=== PATIENT | female | born 1985 | race Caucasian/White ===

== ENCOUNTER 2023-05-06 00:05 | Day surgery (SDC) | payer OTHER ==
[~2023-05-06] VITALS: Ht 170.2 cm; Wt 63.2 kg
[2023-05-06] VITALS (10 sets, daily range): BP systolic 90–115; BP diastolic 49–71; PULSE 62–88; TEMP 97.7–98.6
[~2023-05-06 00:05] MED LIST: HYDROmorphone 0.5 MG/0.5 ML SYRINGE IV PRN; NS 1,000 ML IV SCH; Ondansetron 4 MG/2 ML VIAL IV PRN
--- NOTE | 2023-05-06 00:42 | NUR ---
THE PATIENT ARRIVED VIA EMS ALERT AND ORIENTED. THE PATIENT WAS ORIENTED TO THE ROOM AND BED CONTROLS. THE PATIENTS VITAL SIGNS WERE STABLE. CALL LIGHT WITHIN REACH WELL PERSONAL BELONGINGS.
[2023-05-06] MEDS ORDERED: IMITREX50 MG PO (00:48)
[2023-05-06] MEDS ORDERED: SEROQUEL 2525 MG/TAB PO (00:50)
[2023-05-06] MEDS ORDERED: ABILIFY 10MG TA10 MG PO (00:53)
[2023-05-06] MEDS ORDERED: RIBOFLAVIN100 MG PO (00:54)
[2023-05-06] MEDS ORDERED: TOPAMAX 100MG100 M1 PO (00:56)
--- NOTE | 2023-05-06 07:30 | NUR ---
OR ON UNIT AND WANTING TO TAKE PATIENT DOWN TO OR. PATIENT HAS BEEN NPO SINCE MIDNIGHT. IV FLUIDS INFUSING VIA PUMP, NO PRE-OP ORDERS. IV FLUIDS PLACED TO GRAVITY FOR OR. PATIENT STILL IN STREET CLOTHES. ASSISTED PATIENT TO BATHROOM TO VOID AND CHANGED INTO GOWN. NO ORDERS FOR CONSENT, OR STAFF NOTIFIED. NEGATIVE HCG ON CHART AND CIRCLED. TICKET TO RIDE ON CHART. PATIENT TEXT HER FAMILY/FRIENDS AND IS NOW OFF FLOOR.
[2023-05-06] MEDS ORDERED: Rocuronium 50 MG/5 ML Multi-Dose VIAL ONE (07:41)
[2023-05-06] MEDS ORDERED: Succinylcholine PF 100 MG/5 ML SYRINGE/POLY AMP IV ONE (07:41)
[2023-05-06] MEDS ORDERED: Lidocaine PF 2% (20 MG/ML) 5 ML VIAL ONE (07:42)
[2023-05-06] MEDS ORDERED: fentaNYL 50 MCG/ML 2 ML VIAL ONE (07:42)
[2023-05-06] MEDS ORDERED: LR 1,000 ML IV SCH (07:45)
[2023-05-06] MEDS ORDERED: Ibuprofen 600 MG TAB PO PRN (08:00)
[2023-05-06] MEDS ORDERED: IBU600 MG PO (08:01)
[2023-05-06] MEDS ORDERED: AMOXICILLIN 8751 TAB PO (08:01)
[2023-05-06] MEDS ORDERED: NORCO 325 MG-51 TAB PO (08:01)
[2023-05-06] MEDS ORDERED: HYDROmorphone 2 MG/1 ML VIAL IV PRN (08:15)
[2023-05-06] MEDS ORDERED: fentaNYL 50 MCG/ML 2 ML VIAL IV PRN (08:15)
[2023-05-06] MEDS ORDERED: hydrALAZINE 20 MG/ML 1 ML VIAL IV PRN (08:15)
[2023-05-06] MEDS ORDERED: Meperidine 50 MG/ML 1 ML VIAL IV PRN (08:15)
[2023-05-06] MEDS ORDERED: Ondansetron 4 MG/2 ML VIAL IV PRN (08:15)
[2023-05-06] MEDS ORDERED: Ondansetron 4 MG/2 ML VIAL ONE (08:29)
[2023-05-06] MEDS ORDERED: dexAMETHasone 10 MG/ML VIAL ONE (08:29)
[2023-05-06] MEDS ORDERED: Topical Skin Adhesive 1 EACH (1 ML) TOP ONE (08:30)
[2023-05-06] MEDS ORDERED: Ketorolac 30 MG/ML VIAL ONE (08:35)
--- NOTE | 2023-05-06 09:30 | NUR ---
PATIENT BACK IN ROOM POSTOP. VERY DROWSY BUT ORIENTED. VSS. NO COMPLAINTS.
--- NOTE | 2023-05-06 11:10 | NUR ---
PATIENT NOW MORE AWAKE AND REPORTS FEELING HUNGRY. PATIENT SHOWN HOW TO ORDER. FRIEND AT BEDSIDE. VSS. PATIENT DOING WELL AND WILL DISCHARGE WHEN CRITERIA MEET.
--- NOTE | 2023-05-06 11:20 | NUR ---
mental health social worker met with patient and her friend, gail at bedside to discuss discharge planning. Pt lives in [place] with her , Thiago [phone]. Pt reports her is deployed. She sees any provider at [facility] and obtains medications from [facility] with no difficulties. She is independent with [facility] and uses no DME. She does not have a DPOA-HC, but completed one listing her , Thiago. Copy in chart and copies/original provided. Pt intends to return home at discharge today. Discharge Plan: Home
--- NOTE | 2023-05-06 13:30 | NUR ---
PATIENT DISCHARGING HOME. GAVE DISCHARGE INSTRUCTIONS, E-SCRIPTS SENT, AND DISCUSSED F/U APT. ANSWERED QUESTIONS/CONCERNS. DC'D IV SITE AND COVERED WITH [employer]. PATIENT IS DRESSED, PACKED AND ESCORTED OUT TO PERSONAL VEHICLE WITH FRIEND.
[2023-05-06] MEDS ORDERED: Amoxicillin/Clavulanate K+ 875/125 MG TAB PO SCH (17:00)
== END 2023-05-06 13:30 | disposition home or self-care (01) ==
LOC: SURG 00:05 → SDCO 00:05 → SURG 13:30 → SDCO 13:30 → SURG 14:22
DX: K35.80 Unspecified acute appendicitis (principal)
CPT/HCPCS: OP; G0378; G0379; J0330; J1100; J1170; J1885; J2405; J2543; J2704; J3010; J7030

== ENCOUNTER → 2023-06-22 | Outpatient (CLI) | payer OTHER ==
[~2023-06-22] VITALS: Ht 170.2 cm; Wt 63.0 kg
[~2023-06-22] MED LIST changes: +ABILIFY 10MG TA10 MG PO; +AMOXICILLIN 8751 TAB PO; -HYDROmorphone 0.5 MG/0.5 ML SYRINGE IV PRN; +IBU600 MG PO; +IMITREX50 MG PO; +NORCO 325 MG-51 TAB PO; -NS 1,000 ML IV SCH; -Ondansetron 4 MG/2 ML VIAL IV PRN; +PHARMASSURE MA500 MG PO; +PROZAC 20MG20 MG PO; +RIBOFLAVIN100 MG PO; +SEROQUEL 2525 MG/TAB PO; +TOPAMAX 100MG100 M1 PO
[2023-06-22 12:08] VITALS: BP 111/74; PULSE 69; TEMP 97.9
--- NOTE | 2023-06-22 12:41 | NUR ---
porocedure cancelled by sr adame
== END ==
LOC: COL.RAD 11:21
DX: D3A.8 Other benign neuroendocrine tumors (principal); Z80.3 Family history of malignant neoplasm of breast